=== PATIENT | female | born 1985 ===

== ENCOUNTER 2025-04-27 10:10 | Emergency (ER) | payer SELFPAY ==
[2025-04-27 10:18] VITALS: BP 144/93; PULSE 111; RESP 17; TEMP 37.2; O2SAT 99
[2025-04-27 10:53] VITALS: BP 140/88; PULSE 97; RESP 18; TEMP 36.7; O2SAT 98
--- NOTE | 2025-04-27 10:54 | PD.EDMEDCL ---
ED Medical Clearance RME/HPI General Stated complaint: MEDICAL CLEARANCE Time Seen by Provider: 04/27/25 10:29 Arrival date/time: 04/27/25 10:10 This is a 39-year-old female that is brought in by ground intelligence officer for complaints of residential clearance. Per officer patient does not want to talk to staff. Per ground intelligence officer they were unable to do the intake on patient to occur because she was not wanting to answer questions. Patient was brought in for that reason. Related Information Home Medications ?Medication ?Instructions ?Recorded ?Confirmed No Known Home Medications 11/02/18 11/02/18 Allergies Allergy/AdvReac Type Severity Reaction Status Date / Time Penicillins Allergy Rash Verified 11/02/18 16:38 Course Vital Signs Vital signs: Vital Signs Temperature 99.0 F 04/27/25 10:18 Pulse Rate 111 H 04/27/25 10:18 Respiratory Rate 17 04/27/25 10:18 Blood Pressure 144/93 H 04/27/25 10:18 Pulse Oximetry (%) 99 04/27/25 10:18 Oxygen Delivery Method Room Air 04/27/25 10:18 Medical Clearance MDM Narrative MDM Narrative:: I tried to talk to patient and she did not want to answer my questions. Per officer she Micronesian-speaking and I spoke to her in Micronesian and every time I talk to her she would turn her head the opposite way. I did assess her. Vital signs are stable. I asked her if she had any complaints I asked her if she had any past medical history asked her if she takes any medications. Patient did not want to answer me. Vital signs are stable at this time we will send patient to residential. I told officer to bring patient back if symptoms change or worsen. Discharge Plan Plan Patient Disposition: Nursing Home/Court/Law Patient condition on transfer: Stable Prescriptions/Referrals Prescriptions/Med Rec: No Action No Known Home Medications Problem List Clinical Impression: Medical clearance for incarceration Patient/Caregiver Discharge Instructions Discharge Activity: activity as tolerated Education Materials: Reducing Your Health Risks ... Additional Instructions: Follow up with primary provider in 1-2 days. Come back to ED if symptoms change or worsen. Follow-up with residential doctor Print Language: Micronesian TJ/KRISTINE Supervising Physician TJ/KRISTINE Supervising Physician: [email or web address]
== END 2025-04-27 11:19 ==
LOC: SERX 11:11
PROVIDERS: Emergency Provider Family Medicine
DX: Z02.89 Encounter for other administrative examinations (principal)
CPT/HCPCS: 99281